=== PATIENT | female | born 1950 | race Caucasian/White ===

== ENCOUNTER 2016-05-23 07:04 | Inpatient (IN) ==
[2016-05-17 13:59] LABS: Basophils # (Auto) 0 K/mcL (0.0-0.3); Basophils % (Auto) 0.5 % (0.0-2.0); Eosinophils # (Auto) 0.1 K/mcL (0.0-0.7); Eosinophils % (Auto) 1.6 % (0.0-7.0); Granulocytes % (Auto) 59.4 % (38.0-78.0); Lymphocytes # (Auto) 3.2 K/mcL (1.5-4.8); Lymphocytes % (Auto) 33.3 % (15.5-49.0); Mean Cell Volume 89.2 fL (80.0-100.0); Mean Corpuscular HGB Conc 33.2 g/dL (31.0-36.0); Mean Corpuscular Hemoglobin 29.6 pg (26.0-34.0); Monocytes # (Auto) 0.5 K/mcL (0.1-0.9); Monocytes % (Auto) 5.2 % (1.0-9.0); Platelet Count 286 K/mcL (140-440); RBC 4.56 M/mcL (4.00-5.20); Red Cell Distribution Width 13.9 % (11.5-14.5)
[2016-05-17 14:30] LABS: Blood Urea Nitrogen 13 mg/dl (8-23)
[2016-05-17 15:22] LABS: Appearance,Urine HAZY; Bacteria,Urine FEW /hpf (0); Bilirubin,Urine NEG (NEG); Color,Urine AMBER; Glucose,Urine (UA) NEGATIVE (NEG); Leukocyte Esterase,Urine NEG /uL (NEG); Mucus,Urine MOD /hpf (0); Nitrate,Urine NEG (NEG); Protein,Urine 30 mg/dL (NEG); Specific Gravity,Urine 1.023 (1.000-1.035); Urine Blood NEG mg/dL (<0.03); Urine Hyaline Cast 13 /lpf (0-2); Urine RBC 5 /hpf (0-1); Urine Squamous Epithelial Cell 6 /hpf (0-4); Urine WBC 1 /hpf (0-4); Urobilinogen,Urine NEG (NEG)
[~2016-05-23 07:04] MED LIST: ACETAMINOPHEN 500 MG TABLET PO SCH; CELECOXIB 200 MG CAPSULE PO SCH; KETOROLAC 30 MG, ROPIVACAINE HCL/PF 49.5 ML, EPINEPHrine 0.5 MG, 0.9 % SODIUM CHLORIDE ... IJ SCH; PREGABALIN 150 MG CAPSULE PO SCH; ceFAZolin 1 GM VIAL IV SCH; oxyCODONE 10 MG TAB.ER.12H PO SCH
[2016-05-23] MEDS ORDERED: 0.9 % SODIUM CHLORIDE 250 ML IV SCH (07:15)
[2016-05-23] MEDS ORDERED: ONDANSETRON 4 MG/2 ML VIAL IV ONE (11:10)
[2016-05-23] MEDS ORDERED: TRANEXAMIC ACID 1,000 MG/10 ML VIAL IV ONE ×2 (11:10→12:56)
[2016-05-23] MEDS ORDERED: fentaNYL 250 MCG/5 ML VIAL IV ONE (11:10)
[2016-05-23] MEDS ORDERED: MIDAZOLAM 5 MG/5 ML VIAL IV ONE (11:10)
[2016-05-23] MEDS ORDERED: PROPOFOL 200 MG/20 ML VIAL IV ONE (11:10)
[2016-05-23] MEDS ORDERED: ROPIVACAINE HCL/PF 30 ML VIAL IJ ONE (11:10)
[2016-05-23] MEDS ORDERED: LIDOCAINE HCL/PF 100 MG/5 ML SYRINGE IV ONE (11:10)
[2016-05-23] MEDS ORDERED: DEXAMETHASONE 10 MG/ML VIAL IV ONE (11:10)
[2016-05-23] MEDS ORDERED: ATROPINE SULFATE 0.4 MG/ML VIAL IV PRN (12:10)
[2016-05-23] MEDS ORDERED: diphenhydrAMINE 50 MG/ML VIAL IV PRN (12:10)
[2016-05-23] MEDS ORDERED: NALOXONE HCL 0.4 MG/ML VIAL IV PRN (12:10)
[2016-05-23] MEDS ORDERED: fentaNYL 100 MCG/2 ML VIAL IV PRN (12:10)
[2016-05-23] MEDS ORDERED: BENZOCAINE/MENTHOL 1 LOZENGE PO PRN ×2 (12:10→12:56)
[2016-05-23] MEDS ORDERED: FLUMAZENIL 0.1 MG/ML ML IV PRN (12:10)
[2016-05-23] MEDS ORDERED: ePHEDrine 50 MG/ML AMPUL IV PRN (12:10)
[2016-05-23] MEDS ORDERED: METHOCARBAMOL 1,000 MG/10 ML VIAL IV PRN (12:10)
[2016-05-23] MEDS ORDERED: HYDROmorphone 2 MG/ML SYRINGE IV PRN ×2 (12:10→12:56)
[2016-05-23] MEDS ORDERED: IPRATROPIUM/ALBUTEROL 3 ML AMPUL.NEB NEB PRN (12:10)
[2016-05-23] MEDS ORDERED: METOPROLOL TARTRATE 5 MG/5 ML VIAL IV PRN (12:10)
[2016-05-23] MEDS ORDERED: ONDANSETRON 4 MG/2 ML VIAL IV PRN ×2 (12:10→12:56)
[2016-05-23] MEDS ORDERED: GENTAMICIN SULFATE 800 MG/20 ML VIAL IR ONE (12:10)
[2016-05-23] MEDS ORDERED: MEPERIDINE 25 MG/ML SYRINGE IV PRN (12:10)
[2016-05-23] MEDS ORDERED: LACTATED RINGERS 1,000 ML IV SCH (12:15)
[2016-05-23] MEDS ORDERED: BISACODYL 10 MG SUPP.RECT PR PRN (12:56)
[2016-05-23] MEDS ORDERED: TEMAZEPAM 15 MG CAPSULE PO PRN (12:56)
[2016-05-23] MEDS ORDERED: ACETAMINOPHEN 325 MG TABLET PO PRN (12:56)
[2016-05-23] MEDS ORDERED: FLEETS ADULT ENEMA PR PRN (12:56)
[2016-05-23] MEDS ORDERED: MAGNESIUM HYDROXIDE 30 ML ORAL.SUSP PO PRN (12:56)
[2016-05-23] MEDS ORDERED: POLYETHYLENE GLYCOL 3350 17 GM PACKET PO PRN (12:56)
--- NOTE | 2016-05-23 13:02 | Brief Operative Note ---
Date of procedure: 05/23/16 Pre-op diagnosis: right knee djd Post-op diagnosis: same Procedure: right total knee Grafts/Implants: Yes Anesthesia: GETA Findings: none Complications Description: 05/23/16 13:01 none Surgeon: Segundo Wasserman Heavy Forger Helper: Davin Hoffman Estimated blood loss (cc): 100 Tourniquet Time (Minutes): 35 Specimens Removed/Pathology: none sent Condition: stable Disposition: PACU
[2016-05-23] MEDS ORDERED: ACETAMINOPHEN 650 MG/65 ML BOTTLE IV PRN (13:34)
--- NOTE | 2016-05-23 14:03 | XRay Report ---
CLINICAL INFORMATION: Postop total knee prostheses COMPARISON: None. FINDINGS: Total knee prostheses is anatomically aligned. No osseous abnormality. Soft tissues swelling and gas seen as expected IMPRESSION: Negative Interpreted and Authenticated by: Alessio Dover 05/23/16
--- NOTE | 2016-05-23 14:10 | Operative Note ---
DATE OF OPERATION: 05/23/2016 PREOPERATIVE DIAGNOSIS: Right knee degenerative arthritis in the patellofemoral joint. POSTOPERATIVE DIAGNOSIS: Arthritis in all three compartments. PROCEDURE: Right total knee arthroplasty. SURGEON: Segundo Wasserman MD. FLIGHT SERVICE SPECIALIST: Davin Hoffman PA-C. ANESTHESIA: General LMA anesthesia. TOTAL TOURNIQUET TIME: Approximately 35 minutes. ESTIMATED BLOOD LOSS: 100 mL. DESCRIPTION OF PROCEDURE: The patient was brought to the operating room and put to sleep with general LMA anesthesia. Once asleep, the patient had the right leg sterilely prepped and draped in the usual sterile fashion. A midline incision was made, mid vastus approach performed. I inspected the whole knee. This did reveal severe arthritis in the patellofemoral joint, but we did notice full-thickness defects both on the medial and lateral femoral condyle. A picture was taken with the iPhone to confirm the defects, and we proceeded with a total knee arthroplasty. Her insurance said it only would have paid for one partial or a total, not two compartment knee. She was not a partial candidate. At this point, we proceeded with a total knee arthroplasty. We placed intramedullary guide rods into the femur and tibia, made our distal femoral cut at 8 mm, made our anterior and posterior chamfer cut for size 4 femur. The tibia was measured and resected at 9 mm with an intramedullary guide leanne. Osteophytes were removed posteriorly. Meniscus was removed. We then tapped into place a size 3 tibial baseplate and then trialed a size 9, an 11 and 13. The 11 felt to be the most stability throughout the range of motion. We irrigated thoroughly. We then prepared the patella. It measured 19 mm in total thickness. We cut this to 12.5 to 13 mm and implanted a 33 mm patellar button. Three holes were placed after cutting to the depth of 13 mm. This tracked anatomically. We irrigated and cemented into place a size 4 femur, size 3 tibial base plate from [employer] with a small stem, a 50 mm stem with a 13 mm poly insert and 33 mm patellar button. We irrigated thoroughly, left the knee at 45 degrees until all components were completely dry and cement was hard. We then irrigated thoroughly. We then closed the capsule with #2 FiberWire and a #1 double-armed Maxon. We closed the skin with 2-0 Vicryl and adhesive closure superficially. The patient tolerated this well without complication. RBH:lizett Job ID: [id number] Doc ID: [id number] Segundo Wasserman MD
[2016-05-23] MEDS: 0.45 % SODIUM CHLORIDE 1,000 ML IV SCH ×2 (15:46→21:05)
[2016-05-23] MEDS: 0.9 % SODIUM CHLORIDE 10 ML SYRINGE IV SCH ×2 (15:47→22:06)
[2016-05-23] MEDS: HYDROcodone/APAP 10/325MG TABLET PO PRN ×2 (16:45→20:47)
[2016-05-23] MEDS: KETOROLAC 15 MG/ML VIAL IV SCH ×2 (17:59→23:57)
[2016-05-23] MEDS: ceFAZolin 1 GM VIAL IV SCH (19:39)
[2016-05-23] MEDS: ASPIRIN 325 MG ENTERIC COATED TABLET PO SCH (20:47)
[2016-05-23] MEDS: DOCUSATE SODIUM 100 MG CAPSULE PO SCH (20:47)
[2016-05-23] MEDS ORDERED: SENNOSIDES 1 TABLET PO SCH (21:00)
[2016-05-24] MEDS: HYDROcodone/APAP 10/325MG TABLET PO PRN ×3 (02:10→10:50)
[2016-05-24] MEDS: ceFAZolin 1 GM VIAL IV SCH (02:10)
[2016-05-24] MEDS: 0.45 % SODIUM CHLORIDE 1,000 ML IV SCH ×2 (04:48→15:24)
[2016-05-24] MEDS: KETOROLAC 15 MG/ML VIAL IV SCH ×2 (05:18→12:13)
[2016-05-24] MEDS: 0.9 % SODIUM CHLORIDE 10 ML SYRINGE IV SCH ×2 (05:20→13:52)
--- NOTE | 2016-05-24 07:45 | Orthopedic Progress Note ---
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 Chief Complaint: [Pt is stable this morning on post operative day 1 without any significant concerns or complaints. Patients vital signs have remained stable. Patients dressing is dry and exhibits a grossly intact neurovascular and neuromotor exam. Patients 10 point ROS is otherwise negative. ] Objective Vital signs: Vital Signs Temp Pulse Pulse Resp BP BP Pulse Ox 05/24/16 07:37 98.2 F 118 H 22 129/58 95 05/24/16 07:35 117 H 12 96 05/24/16 04:00 98.1 F 118 H 22 108/54 96 05/24/16 00:00 97.7 F 115 H 22 110/65 97 05/23/16 23:46 16 94 05/23/16 23:32 92 05/23/16 20:00 98.8 F 119 H 22 120/70 93 05/23/16 16:24 120 H 20 125/79 96 05/23/16 16:18 98 05/23/16 16:00 97.6 F 119 H 16 147/79 94 05/23/16 15:30 118 H 16 133/75 91 05/23/16 14:52 97.7 F 115 H 16 139/74 96 05/23/16 14:43 93 H 20 122/67 97 05/23/16 14:41 122 H 16 141/81 94 05/23/16 14:26 94 H 20 145/79 94 05/23/16 14:10 97.7 F 115 H 16 139/74 95 05/23/16 13:55 97.7 F 116 H 17 137/77 97 05/23/16 13:40 97.5 F L 121 H 21 138/84 96 05/23/16 13:35 97.7 F 123 H 24 156/74 96 05/23/16 13:30 97.7 F 121 H 20 146/77 97 05/23/16 13:25 97.7 F 123 H 15 171/78 96 05/23/16 13:20 97.7 F 123 H 18 177/82 95 05/23/16 13:15 97.7 F 113 H 18 155/76 97 05/23/16 13:10 97.8 F 135 H 22 137/77 95 05/23/16 12:56 98 Intake and Output 05/23/16 05/24/16 05/24/16 21:59 05:59 13:59 Intake Total 1595 / 1595 150 / 150 Output Total 700 / 700 950 / 950 Balance 895 / 895 -800 / -800 Intake: IV 665 / 665 Sodium Chloride 0.45% 1, 665 / 665 000 ml @ 125 mls/hr IV . Q8H CASTILLO Rx#:[id number] Oral 930 / 930 150 / 150 Output: Void Amount 700 / 700 950 / 950 Other: Meal Dinner Percent of Meal Consumed 100% Feeding Ability Independent Weight 200 lb Intake & Output: Intake & Output 05/23/16 05/24/16 05/24/16 21:59 05:59 13:59 Intake Total 1595 / 1595 150 / 150 Output Total 700 / 700 950 / 950 Balance 895 / 895 -800 / -800 Weight 200 lb Intake: IV 665 / 665 Sodium Chloride 0.45% 1, 665 / 665 000 ml @ 125 mls/hr IV . Q8H CASTILLO Rx#:[id number] Oral 930 / 930 150 / 150 Output: Void Amount 700 / 700 950 / 950 Other: Meal Dinner Percent of Meal Consumed 100% Feeding Ability Independent Incision: Yes healing Incision clean and dry: Yes Dressing: Yes clean, Yes dry Weight bearing status: full Neurological exam IM: Yes motor sensory intact, Yes neurovascular intact Extremities exam IM: Yes Foot pink and warm, Yes neurovascular intact - Labs CBC & BMP: 05/24/16 05:55 05/17/16 11:40 Labs: Orthopedic Labs 05/23/16 05/17/16 07:16 11:40 POC PT 12.6 PT 21.7 H POC INR 1.1 INR 1.8 H APTT 35 05/24/16 05/17/16 05:55 11:40 Hgb 13.5 Hct 27.8 L 40.7 Assessment and Plan (1) Hx of total knee arthroplasty Patient has been educated regarding wound care and dressings, follow up recommendations, and medication use. We will f/u with the patient within 2-3 weeks for wound check. Status: Acute
--- NOTE | 2016-05-24 07:48 | Discharge Summary ---
Ortho Discharge - TKA - Patient Instructions Diet: Regular Diet Activity: activity as tolerated, weight bearing as tolerated Total Knee Protocol: For Total Knee: Start ROM DAVID with stationary bike or rocking chair. Work on gaining full extension of knee. Posterior dislocation precautions provided. Hip abductor strengthening and gait training instructions provided. Apply Cryocuff as instructed. Dressing Care: May shower in 2 days Additional Instructions: CMP for home use - Problem Maintenance (1) Hx of total knee arthroplasty Status: Acute - Follow Up Plan Follow Up Appointments: Segundo Wasserman MD [Physician] - 06/07/16 10:40 am Disposition: Home, Self-Care Prognosis: Good Rehab Potential: Good I certify that the patient requires SNF services: No Overall status at discharge: patient is progressing back to baseline - Orders For Discharge Prescriptions: Docusate Sodium [Colace] 100 mg PO BID #60 capsule HYDROcodone/APAP 10/325MG [[place] 10/325Mg] 1 - 2 tab PO Q4HP PRN #75 tablet PRN Reason: Pain
[2016-05-24] MEDS: DOCUSATE SODIUM 100 MG CAPSULE PO SCH (08:35)
[2016-05-24] MEDS: ASPIRIN 325 MG ENTERIC COATED TABLET PO SCH (08:36)
[2016-05-24] MEDS ORDERED: ENOXAPARIN 100 MG/ML SYRINGE SQ SCH (09:00)
[2016-05-24] MEDS ORDERED: WARFARIN 2.5 MG TABLET PO SCH (14:00)
[2016-05-24] MEDS ORDERED: MELOXICAM 7.5 MG TABLET PO SCH (21:00)
[2016-05-24] MEDS ORDERED: cloNIDine HCL 0.1 MG TABLET PO SCH (21:00)
[2016-05-24] MEDS ORDERED: buPROPion 150 MG TAB.SR.12H PO SCH (21:00)
[2016-05-24] MEDS ORDERED: ATENOLOL 50 MG TABLET PO SCH (21:00)
== END 2016-05-24 14:26 | disposition home or self-care (01) | DRG 470 ==
LOC: SUR 07:04 → MEDSUR 14:52
PROVIDERS: ADMIT Orthopaedic Surgery; ATTEND Orthopaedic Surgery